=== PATIENT | female | born 1965 | race Two or more races ===

== ENCOUNTER 2016-11-14 18:35 | Inpatient (IN) | payer BC, OTHER ==
[~2016-11-14] VITALS: Ht 162.6 cm; Wt 119.3 kg
[2016-11-14] MEDS ORDERED: DEXAMETHASONE 4 MG TAB PO ONE (20:00)
[2016-11-14] MEDS ORDERED: SODIUM CHLORIDE 0.9% 1,000 ML IV ONE (20:00)
[2016-11-14] MEDS ORDERED: LEVOFLOXACIN 750MG 150 ML IV ONE (20:00)
[2016-11-14] MEDS ORDERED: ALBUTEROL SULF 2.5 MG/0.5ML(0.5%) NEB SOLN NEB ONE (20:00)
[2016-11-14 20:09] LABS: Basophils # (auto) 0.3 uL; Basophils % (auto) 2.2 % (0.0-2.0); Eosinophils # (auto) 0 uL; Hematocrit 36.7 % (36.0-46.0); Hemoglobin 11.4 g/dL (12.2-16.2); Lymphocytes # (auto) 0.9 uL; Lymphocytes % (auto) 5.8 % (10.0-50.0); Mean Corpuscular Hemoglobin 28.9 pg (28.0-32.0); Mean Corpuscular Volume 93.2 fL (80.0-100.0); Mean Platelet Volume 8.2 fL (7.4-10.4); Monocytes % (auto) 6.8 % (0.0-12.0); Neutrophils # (auto) 12.8 uL; Neutrophils % (auto) 85.2 % (37.0-80.0); Platelet Count (auto) 315 10^3/uL (140-450); Red Cell Distribution Width 15.6 % (11.6-16.0); SUSPECT VIEW TRANSMISSION
[2016-11-14 20:49] LABS: Albumin 3.5 g/dL (3.4-5.0); BUN/Creatinine Ratio 11.9; Calcium 7.6 mg/dL (8.5-10.1); Potassium 5.5 mmol/L (3.5-5.1)
[2016-11-14 20:52] LABS: Bilirubin, Total 0.4 mg/dL (0.2-1.0); Total Protein 7.3 g/dL (6.4-8.2)
[2016-11-14] MEDS ORDERED: PROG1CRE TOP (22:03)
[2016-11-14] MEDS ORDERED: TRAZ150T79 PO (22:03)
[2016-11-14] MEDS ORDERED: MONT10TA34 PO (22:03)
[2016-11-14] MEDS ORDERED: LEVO50TA7 PO (22:03)
[2016-11-14] MEDS ORDERED: LIOT25TA PO (22:03)
[2016-11-14] MEDS ORDERED: ESCI20TA PO (22:03)
[2016-11-14] MEDS ORDERED: PROMETHAZINE W/CODEINE 5 ML ORAL SYRUP PO PRN (23:15)
[2016-11-14] MEDS ORDERED: CYCLOBENZAPRINE HCL 10 MG TAB PO PRN (23:15)
[2016-11-14 23:38] VITALS: BP 127/80
[2016-11-15] VITALS (7 sets, daily range): BP systolic 87–147; BP diastolic 55–96
[2016-11-15] MEDS: PIPERACILLIN-TAZOB 3.375GM 100 ML IV SCH ×4 (00:25→13:19)
[2016-11-15] MEDS: SODIUM CHLORIDE 0.9% 1,000 ML IV SCH ×2 (00:26→12:30)
[2016-11-15] MEDS: IPRATROPIUM BROM 0.5 MG/2.5ML INH SOL NEB SCH ×5 (02:57→20:20)
[2016-11-15] MEDS: ALBUTEROL SULF 2.5 MG/0.5ML(0.5%) NEB SOLN NEB SCH ×5 (02:57→20:20)
[2016-11-15 06:43] LABS: Basophils # (auto) 0 uL; Eosinophils # (auto) 0 uL; Hematocrit 31.6 % (36.0-46.0); Lymphocytes # (auto) 0.7 uL; Lymphocytes % (auto) 6.5 % (10.0-50.0); Mean Corpuscular Hgb Conc. 31.7 g/dL (32.0-36.0); Mean Corpuscular Volume 91.5 fL (80.0-100.0); Mean Platelet Volume 8.6 fL (7.4-10.4); Monocytes # (auto) 0.5 uL; Monocytes % (auto) 4.4 % (0.0-12.0); Neutrophils # (auto) 9.8 uL; Neutrophils % (auto) 89.1 % (37.0-80.0); Platelet Count (auto) 233 10^3/uL (140-450); Red Cell Distribution Width 15.3 % (11.6-16.0); White Blood Cell 10.9 10^3/uL (4.4-10.8)
[2016-11-15 07:06] LABS: Albumin 3.2 g/dL (3.4-5.0); Potassium 4.4 mmol/L (3.5-5.1)
[2016-11-15 07:13] LABS: BUN/Creatinine Ratio 12.8; Bilirubin, Total 0.6 mg/dL (0.2-1.0); Calcium 7.8 mg/dL (8.5-10.1); Total Protein 6.7 g/dL (6.4-8.2)
[2016-11-15] MEDS ORDERED: LEXAPRO 20 MG PO SCH (10:00)
[2016-11-15] MEDS ORDERED: methylPREDNISolone SOD SUCC 40 MG/ML VL IM SCH (10:00)
[2016-11-15] MEDS ORDERED: ENOXAPARIN SOD 30 MG/0.3 ML SYRINGE SC SCH (10:00)
[2016-11-15] MEDS: ASPirin 81 mg TAB PO SCH (10:00)
[2016-11-15] MEDS: ENOXAPARIN SOD 40 MG/0.4 ML SYRINGE SC SCH (11:33)
[2016-11-15] MEDS: MONTELUKAST SODIUM 10 MG TAB PO SCH (11:33)
[2016-11-15] MEDS: PANTOPRAZOLE SODIUM 40 MG/10 ML VIAL IV SCH (11:34)
[2016-11-15 12:41] LABS: B-Type Natriuretic Peptide 386.32 pg/mL (0-100)
[2016-11-15 12:42] LABS: Temperature: 23.4 C (20.0-25.0)
[2016-11-15] MEDS ORDERED: FUROSEMIDE 100 MG/10ML VIAL IV ONE (14:30)
[2016-11-15] MEDS ORDERED: POTASSIUM CHL 10% (20 MEQ/15ML) ORAL SOLN PO ONE (14:30)
[2016-11-15] MEDS: LEVOFLOXACIN 500 MG TAB PO SCH (14:43)
[2016-11-15] MEDS: DIAZEPAM 5 MG TAB PO PRN (17:43)
[2016-11-15] MEDS: guaiFENesin 200 MG/10 ML UD PO SCH ×2 (18:05→23:38)
[2016-11-15] MEDS ORDERED: LEVOTHYROXINE SODIUM 50 MCG TAB PO ONE (18:15)
[2016-11-15] MEDS ORDERED: LEVOFLOXACIN 500MG 100 ML IV SCH (22:00)
[2016-11-15] MEDS ORDERED: LEVOTHYROXINE SODIUM 50 MCG TAB PO SCH (22:00)
[2016-11-15] MEDS: LEXAPRO 20 MG PO SCH (22:00)
[2016-11-15] MEDS: LEVOTHYROXINE 50 MCG TABLET PO SCH (22:00)
[2016-11-15] MEDS: traZODone HCL 50 MG TAB PO SCH (22:56)
[2016-11-16 04:50] VITALS: BP 111/55
[2016-11-16] MEDS: ALBUTEROL SULF 2.5 MG/0.5ML(0.5%) NEB SOLN NEB SCH ×4 (05:50→20:15)
[2016-11-16] MEDS: IPRATROPIUM BROM 0.5 MG/2.5ML INH SOL NEB SCH ×4 (05:50→20:15)
[2016-11-16] MEDS: guaiFENesin 200 MG/10 ML UD PO SCH ×4 (06:00→18:00)
[2016-11-16] MEDS ORDERED: LEVOTHYROXINE SODIUM 50 MCG TAB PO SCH (07:00)
[2016-11-16 08:40] VITALS: BP 117/59
[2016-11-16] MEDS: PANTOPRAZOLE SODIUM 40 MG/10 ML VIAL IV SCH (09:02)
[2016-11-16] MEDS: predniSONE 20 MG TAB PO SCH (09:03)
[2016-11-16] MEDS: ASPirin 81 mg TAB PO SCH (09:03)
[2016-11-16] MEDS: ENOXAPARIN SOD 40 MG/0.4 ML SYRINGE SC SCH (09:03)
[2016-11-16] MEDS: LEVOFLOXACIN 500 MG TAB PO SCH (09:03)
[2016-11-16] MEDS ORDERED: VANCOMYCIN PER PHARMACY 0 MG IV SCH (11:30)
[2016-11-16] MEDS ORDERED: VANCOMYCIN 1GM/250ML D5W 250 ML IV ONE (11:45)
[2016-11-16] MEDS: MONTELUKAST SODIUM 10 MG TAB PO SCH (12:18)
[2016-11-16 12:37] VITALS: BP 94/42
[2016-11-16 16:33] VITALS: BP 98/46
[2016-11-16] MEDS: VANCOMYCIN 1GM/250ML D5W 250 ML IV SCH (20:19)
[2016-11-16 21:40] VITALS: BP 109/60
[2016-11-16] MEDS: LEVOTHYROXINE 50 MCG TABLET PO SCH (22:00)
[2016-11-16] MEDS: LEXAPRO 20 MG PO SCH (22:00)
[2016-11-16] MEDS ORDERED: traZODone HCL 50 MG TAB ONE ×2 (22:57→22:58)
[2016-11-16] MEDS: traZODone HCL 50 MG TAB PO SCH (23:25)
[2016-11-16] MEDS: DIAZEPAM 5 MG TAB PO PRN (23:25)
[2016-11-17] MEDS: VANCOMYCIN 1GM/250ML D5W 250 ML IV SCH ×3 (04:21→22:38)
[2016-11-17 05:18] VITALS: BP 120/69
[2016-11-17] MEDS: IPRATROPIUM BROM 0.5 MG/2.5ML INH SOL NEB SCH ×4 (06:19→18:00)
[2016-11-17] MEDS: ALBUTEROL SULF 2.5 MG/0.5ML(0.5%) NEB SOLN NEB SCH ×4 (06:19→18:00)
[2016-11-17] MEDS: guaiFENesin 200 MG/10 ML UD PO SCH ×4 (06:42→18:58)
[2016-11-17 07:24] LABS: Basophils # (auto) 0 uL; Basophils % (auto) 0.2 % (0.0-2.0); Eosinophils # (auto) 0 uL; Hematocrit 35.9 % (36.0-46.0); Hemoglobin 11.2 g/dL (12.2-16.2); Lymphocytes # (auto) 2.6 uL; Lymphocytes % (auto) 16.3 % (10.0-50.0); Mean Corpuscular Hemoglobin 28.5 pg (28.0-32.0); Mean Corpuscular Hgb Conc. 31.1 g/dL (32.0-36.0); Mean Corpuscular Volume 91.6 fL (80.0-100.0); Mean Platelet Volume 8.6 fL (7.4-10.4); Monocytes % (auto) 6.3 % (0.0-12.0); Neutrophils # (auto) 12.2 uL; Neutrophils % (auto) 77.2 % (37.0-80.0); Platelet Count (auto) 293 10^3/uL (140-450); Red Cell Distribution Width 15.9 % (11.6-16.0); White Blood Cell 15.8 10^3/uL (4.4-10.8)
[2016-11-17 07:51] LABS: Potassium 3.8 mmol/L (3.5-5.1)
[2016-11-17 07:55] LABS: Albumin 2.9 g/dL (3.4-5.0); BUN/Creatinine Ratio 27.8; Calcium 8.1 mg/dL (8.5-10.1)
[2016-11-17 07:58] LABS: Bilirubin, Total 0.3 mg/dL (0.2-1.0); Total Protein 6.3 g/dL (6.4-8.2)
[2016-11-17 08:43] VITALS: BP 118/57
[2016-11-17] MEDS: ASPirin 81 mg TAB PO SCH (09:17)
[2016-11-17] MEDS: predniSONE 20 MG TAB PO SCH (09:17)
[2016-11-17] MEDS: PANTOPRAZOLE SODIUM 40 MG/10 ML VIAL IV SCH (09:17)
[2016-11-17] MEDS: MONTELUKAST SODIUM 10 MG TAB PO SCH (09:17)
[2016-11-17] MEDS: ENOXAPARIN SOD 40 MG/0.4 ML SYRINGE SC SCH (09:17)
[2016-11-17] MEDS: LEVOFLOXACIN 500 MG TAB PO SCH (09:17)
[2016-11-17 12:46] VITALS: BP 99/57
[2016-11-17 16:57] VITALS: BP 101/61
[2016-11-17 22:00] VITALS: BP 108/54
[2016-11-17] MEDS: LEVOTHYROXINE 50 MCG TABLET PO SCH (22:00)
[2016-11-17] MEDS: LEXAPRO 20 MG PO SCH (22:00)
[2016-11-17] MEDS: traZODone HCL 50 MG TAB PO SCH (22:39)
[2016-11-18] MEDS: guaiFENesin 200 MG/10 ML UD PO SCH ×5 (00:41→23:13)
[2016-11-18 05:08] VITALS: BP 108/64
[2016-11-18 06:23] LABS: Basophils # (auto) 0 uL; Basophils % (auto) 0.2 % (0.0-2.0); Eosinophils # (auto) 0.1 uL; Eosinophils % (auto) 0.7 % (0.0-7.0); Hematocrit 39.3 % (36.0-46.0); Hemoglobin 12.3 g/dL (12.2-16.2); Lymphocytes # (auto) 2.9 uL; Lymphocytes % (auto) 25.2 % (10.0-50.0); Mean Corpuscular Hemoglobin 28.6 pg (28.0-32.0); Mean Corpuscular Hgb Conc. 31.2 g/dL (32.0-36.0); Mean Corpuscular Volume 91.6 fL (80.0-100.0); Mean Platelet Volume 8.5 fL (7.4-10.4); Monocytes # (auto) 0.9 uL; Monocytes % (auto) 8.1 % (0.0-12.0); Neutrophils # (auto) 7.5 uL; Neutrophils % (auto) 65.8 % (37.0-80.0); Platelet Count (auto) 326 10^3/uL (140-450); Red Cell Distribution Width 15.7 % (11.6-16.0); White Blood Cell 11.4 10^3/uL (4.4-10.8)
[2016-11-18] MEDS: IPRATROPIUM BROM 0.5 MG/2.5ML INH SOL NEB SCH ×4 (06:36→18:00)
[2016-11-18] MEDS: ALBUTEROL SULF 2.5 MG/0.5ML(0.5%) NEB SOLN NEB SCH ×4 (06:36→18:00)
[2016-11-18 06:57] LABS: Albumin 2.9 g/dL (3.4-5.0); BUN/Creatinine Ratio 30.6; Bilirubin, Total 0.3 mg/dL (0.2-1.0); Calcium 8.3 mg/dL (8.5-10.1); Potassium 4.2 mmol/L (3.5-5.1); Total Protein 6.3 g/dL (6.4-8.2)
[2016-11-18 07:30] VITALS: BP 100/45
[2016-11-18] MEDS: VANCOMYCIN 1GM/250ML D5W 250 ML IV SCH ×2 (08:11→16:00)
[2016-11-18] MEDS ORDERED: ADENOSINE 89 MG in GIVE UN-DILUTED 0 ML IV STA (08:26)
[2016-11-18] MEDS: PANTOPRAZOLE SODIUM 40 MG/10 ML VIAL IV SCH (10:00)
[2016-11-18] MEDS: ENOXAPARIN SOD 40 MG/0.4 ML SYRINGE SC SCH (11:53)
[2016-11-18] MEDS: predniSONE 20 MG TAB PO SCH (11:53)
[2016-11-18] MEDS: ASPirin 81 mg TAB PO SCH (11:54)
[2016-11-18 11:55] VITALS: BP 126/73
[2016-11-18] MEDS: LEVOFLOXACIN 500 MG TAB PO SCH (11:55)
[2016-11-18] MEDS: MONTELUKAST SODIUM 10 MG TAB PO SCH (11:55)
[2016-11-18 15:36] VITALS: BP 126/73
[2016-11-18 16:41] VITALS: BP 108/63
[2016-11-18] MEDS: LEXAPRO 20 MG PO SCH (20:43)
[2016-11-18] MEDS: LEVOTHYROXINE 50 MCG TABLET PO SCH (20:44)
[2016-11-18] MEDS: traZODone HCL 50 MG TAB PO SCH (20:44)
[2016-11-18 21:30] VITALS: BP 102/49
[2016-11-18] MEDS: DIAZEPAM 5 MG TAB PO PRN (22:27)
[2016-11-19] VITALS (7 sets, daily range): BP systolic 92–121; BP diastolic 49–78
[2016-11-19] MEDS: guaiFENesin 200 MG/10 ML UD PO SCH ×4 (06:15→23:13)
[2016-11-19 06:24] LABS: Basophils # (auto) 0 uL; Basophils % (auto) 0.2 % (0.0-2.0); Eosinophils # (auto) 0 uL; Eosinophils % (auto) 0.4 % (0.0-7.0); Hemoglobin 12.4 g/dL (12.2-16.2); Lymphocytes # (auto) 2.3 uL; Lymphocytes % (auto) 23.9 % (10.0-50.0); Mean Corpuscular Hemoglobin 28.5 pg (28.0-32.0); Mean Platelet Volume 8.3 fL (7.4-10.4); Monocytes # (auto) 0.9 uL; Neutrophils # (auto) 6.5 uL; Neutrophils % (auto) 66.5 % (37.0-80.0); Platelet Count (auto) 340 10^3/uL (140-450); Red Cell Distribution Width 15.9 % (11.6-16.0); White Blood Cell 9.7 10^3/uL (4.4-10.8)
[2016-11-19 06:55] LABS: BUN/Creatinine Ratio 27.7; Calcium 8.6 mg/dL (8.5-10.1); Potassium 3.7 mmol/L (3.5-5.1)
[2016-11-19] MEDS: ALBUTEROL SULF 2.5 MG/0.5ML(0.5%) NEB SOLN NEB SCH ×4 (06:57→19:41)
[2016-11-19] MEDS: IPRATROPIUM BROM 0.5 MG/2.5ML INH SOL NEB SCH ×4 (06:57→19:41)
[2016-11-19] MEDS: MONTELUKAST SODIUM 10 MG TAB PO SCH (10:49)
[2016-11-19] MEDS: LEVOFLOXACIN 500 MG TAB PO SCH (10:49)
[2016-11-19] MEDS: ASPirin 81 mg TAB PO SCH (10:50)
[2016-11-19] MEDS: PANTOPRAZOLE SODIUM 40 MG/10 ML VIAL IV SCH (10:50)
[2016-11-19] MEDS: predniSONE 20 MG TAB PO SCH (10:50)
[2016-11-19] MEDS: ENOXAPARIN SOD 40 MG/0.4 ML SYRINGE SC SCH (10:50)
[2016-11-19] MEDS: DIAZEPAM 5 MG TAB PO PRN (17:11)
[2016-11-19] MEDS: LEXAPRO 20 MG PO SCH (22:00)
[2016-11-19] MEDS: LEVOTHYROXINE 50 MCG TABLET PO SCH (22:00)
[2016-11-19] MEDS: traZODone HCL 50 MG TAB PO SCH (23:13)
[2016-11-20 05:00] VITALS: BP 100/55
[2016-11-20] MEDS: guaiFENesin 200 MG/10 ML UD PO SCH ×3 (05:56→18:00)
[2016-11-20] MEDS: ALBUTEROL SULF 2.5 MG/0.5ML(0.5%) NEB SOLN NEB SCH ×3 (06:36→13:43)
[2016-11-20] MEDS: IPRATROPIUM BROM 0.5 MG/2.5ML INH SOL NEB SCH ×3 (06:36→13:43)
[2016-11-20 07:55] LABS: INR 0.92 (0.9-1.15); Prothrombin Time 9.5 sec (9.37-12.3)
[2016-11-20 07:56] LABS: Partial Thromboplastin Time 24.3 sec (22.64-33.71)
[2016-11-20] MEDS ORDERED: fentaNYL CITRATE 100 MCG/2 ML VL IV ONE (09:00)
[2016-11-20] MEDS ORDERED: LORazepam 2MG/ML-1ML VIAL IV ONE (09:00)
[2016-11-20 09:18] VITALS: BP 86/41
[2016-11-20] MEDS ORDERED: LIDOCAINE VISCOUS 2% 15ML UD ONE (09:18)
[2016-11-20] MEDS ORDERED: diphenhdrAMINE HCL 50 MG/1 ML VL ONE (09:57)
[2016-11-20] MEDS: ASPirin 81 mg TAB PO SCH (10:00)
[2016-11-20 12:50] VITALS: BP 86/59
[2016-11-20] MEDS: ENOXAPARIN SOD 40 MG/0.4 ML SYRINGE SC SCH (16:20)
[2016-11-20] MEDS: predniSONE 20 MG TAB PO SCH (16:20)
[2016-11-20] MEDS: LEVOFLOXACIN 500 MG TAB PO SCH (16:20)
[2016-11-20] MEDS: PANTOPRAZOLE SODIUM 40 MG/10 ML VIAL IV SCH (16:20)
[2016-11-20] MEDS: MONTELUKAST SODIUM 10 MG TAB PO SCH (16:21)
[2016-11-20 16:33] VITALS: BP 93/55
[2016-11-20 19:44] VITALS: BP 93/55
== END 2016-11-20 20:10 | disposition home or self-care (01) | DRG 871 ==
LOC: ER 18:39 → OVERFLOW 19:40 → EAST 23:38
PROVIDERS: ADMIT Family Medicine; ATTEND Internal Medicine Pulmonary Disease
PROC: B24BZZ4 Ultrasonography of Heart with Aorta, Transesophageal (ICD-10-PCS; principal; 2016-11-20)
DX: A41.9 Sepsis, unspecified organism (principal); N17.0 Acute kidney failure with tubular necrosis; J96.90 Respiratory failure, unspecified, unspecified whether with hypoxia or hypercapnia; M62.82 Rhabdomyolysis; J45.901 Unspecified asthma with (acute) exacerbation; J44.0 Chronic obstructive pulmonary disease with (acute) lower respiratory infection; J44.1 Chronic obstructive pulmonary disease with (acute) exacerbation; Z68.42 Body mass index [BMI] 45.0-49.9, adult; J20.9 Acute bronchitis, unspecified; E87.5 Hyperkalemia; F32.9 Major depressive disorder, single episode, unspecified; N18.3 Chronic kidney disease, stage 3 (moderate); D64.9 Anemia, unspecified; E03.9 Hypothyroidism, unspecified; F17.210 Nicotine dependence, cigarettes, uncomplicated; M79.7 Fibromyalgia; B95.7 Other staphylococcus as the cause of diseases classified elsewhere; G62.9 Polyneuropathy, unspecified; E66.01 Morbid (severe) obesity due to excess calories; I50.9 Heart failure, unspecified; J04.0 Acute laryngitis; E87.6 Hypokalemia; J42 Unspecified chronic bronchitis; Z91.041 Radiographic dye allergy status
CPT/HCPCS: 36415; 71010; 78452; 80048; 80053; 80202; 83880; 84484; 85025; 85610; 85652; 85730; 87040; 87070; 87077; 87186; 87205; 87400; 93005; 93017; 93306; 93312; 93970; 94640; 94761; 96365; C9113; J0153; J1956; J2543

== ENCOUNTER 2016-11-27 17:59 | Inpatient (IN) | payer BC ==
[~2016-11-27] VITALS: Ht 152.4 cm; Wt 113.0 kg
[~2016-11-27 17:59] MED LIST: CALCIUM CHLOR(10%) 100MG/ML 10ML SYRINGE IV ONE; DEXTROSE (50%) 50ML SYRG IV ONE; EPINEPHrine HCL 1 MG/10 ML SYRG IV ONE; ESCI20TA PO; LEVO50TA7 PO; LIOT25TA PO; MONT10TA34 PO; PROG1CRE TOP; SODIUM BICARBONATE 8.4% INJ 50ML SYRINGE IV ONE; TRAZ150T79 PO
[2016-11-27] MEDS ORDERED: NOREPINEPHRINE BITARTRATE 250 ML IV ONE (18:02)
[2016-11-27] MEDS ORDERED: SODIUM CHLORIDE 0.9% 1,000 ML IVB ONE (18:50)
[2016-11-27 19:24] LABS: DEFINITIVE VIEW TRANSMISSION; Hematocrit 33.5 % (36.0-46.0); Hemoglobin 10.1 g/dL (12.2-16.2); Mean Corpuscular Hgb Conc. 30.2 g/dL (32.0-36.0); Mean Corpuscular Volume 96.1 fL (80.0-100.0); Mean Platelet Volume 8.5 fL (7.4-10.4); Platelet Count (auto) 256 10^3/uL (140-450); SUSPECT VIEW TRANSMISSION; White Blood Cell 25.1 10^3/uL (4.4-10.8)
[2016-11-27 19:28] LABS: Myelocytes % 0; Promyelocytes % 0; Reactive Lymphocytes 0
[2016-11-27 19:32] LABS: Albumin 2.3 g/dL (3.4-5.0); Calcium 9.5 mg/dL (8.5-10.1)
[2016-11-27 19:34] LABS: BUN/Creatinine Ratio 11.6
[2016-11-27 19:50] LABS: Lactic Acid 15.4 mmol/L (0.4-2.0)
[2016-11-27 19:55] LABS: Partial Thromboplastin Time 31.1 sec (22.64-33.71)
[2016-11-27 19:57] LABS: Bilirubin, Total 0.4 mg/dL (0.2-1.0); Total Protein 5.4 g/dL (6.4-8.2)
[2016-11-27] MEDS ORDERED: SODIUM BICARBONATE 8.4 % INJ 50ML VIAL IV ONE (20:00)
[2016-11-27] MEDS ORDERED: cefTRIAXone 1GM/50ML D5W 50 ML IV ONE (20:00)
[2016-11-27 20:01] LABS: Metamyelocytes % 2
[2016-11-27 20:02] LABS: Platelet Estimate Adequate
[2016-11-27 20:03] LABS: INR 1.37 (0.9-1.15); Prothrombin Time 14.1 sec (9.37-12.3)
[2016-11-27 20:13] LABS: Magnesium 3.6 mg/dL (1.6-2.6)
[2016-11-27 20:31] LABS: REFLEX LACTIC ACID YES OR NO YES
[2016-11-27 20:40] LABS: Potassium 6.2 mmol/L (3.5-5.1)
[2016-11-27] MEDS ORDERED: LACTULOSE 20Gm/30ML SOLN PO PRN (20:45)
[2016-11-27] MEDS ORDERED: NITROGLYCERIN 0.4 MG SL TAB SL PRN (20:45)
[2016-11-27] MEDS ORDERED: VANCOMYCIN 1GM/250ML D5W 250 ML IV ONE (20:45)
[2016-11-27] MEDS ORDERED: SODIUM POLYSTYRENE SULF 15GM/60ML SUSP NG ONE (20:45)
[2016-11-27] MEDS ORDERED: SODIUM BICARBONATE 8.4% INJ 50ML SYRINGE IV ONE (20:45)
[2016-11-27] MEDS ORDERED: DEXTROSE (50%) 50ML SYRG IV ONE (20:45)
[2016-11-27] MEDS ORDERED: InsuLIN REG 1unit/0.01ml Soln (100units/ml) IV ONE (20:45)
[2016-11-27] MEDS ORDERED: VANCOMYCIN PER PHARMACY 0 MG IV SCH (20:45)
[2016-11-27] MEDS ORDERED: MORPHINE SULF INJ 2 MG/ML SYRINGE 1ML IV PRN (20:45)
[2016-11-27] MEDS ORDERED: CALCIUM GLUC 4.65 MEQ/10ML 4.65 MEQ in SODIUM CHL 0.9% 50 ML IV ONE (20:45)
[2016-11-27] MEDS ORDERED: CALCIUM GLUC 4.65 MEQ/10ML IV ONE (20:53)
[2016-11-27] MEDS ORDERED: ENOXAPARIN SOD 30 MG/0.3 ML SYRINGE SC SCH (20:54)
[2016-11-27] MEDS ORDERED: PANTOPRAZOLE SODIUM 40 MG/10 ML VIAL IV ONE (21:00)
[2016-11-27] MEDS: SODIUM CHLORIDE 0.9% 1,000 ML IV SCH (21:15)
[2016-11-27 21:47] LABS: Albumin 2.6 g/dL (3.4-5.0); Calcium 7.6 mg/dL (8.5-10.1)
[2016-11-27 21:49] LABS: Lactic Acid 12.5 mmol/L (0.4-2.0)
[2016-11-27] MEDS: ALBUTEROL SULF 2.5 MG/0.5ML(0.5%) NEB SOLN NEB SCH (22:00)
[2016-11-27] MEDS ORDERED: methylPREDNISolone SOD SUCC 125 MG/2 ML VL IV SCH (22:00)
[2016-11-27] MEDS: IPRATROPIUM BROM 0.5 MG/2.5ML INH SOL NEB SCH (22:00)
[2016-11-27 22:04] LABS: Bilirubin, Total 0.9 mg/dL (0.2-1.0); Total Protein 5.7 g/dL (6.4-8.2)
[2016-11-27 22:07] LABS: Acetaminophen 8.5 ug/mL (10-30); Salicylate 4.7 mg/dL (2.8-20.0)
[2016-11-27 22:15] LABS: REFLEX LACTIC ACID YES OR NO YES
[2016-11-27 22:37] LABS: Potassium 7.4 mmol/L (3.5-5.1)
[2016-11-27 22:43] VITALS: BP 129/72
[2016-11-27] MEDS ORDERED: ENOXAPARIN SOD 60 MG/0.6 ML SYRINGE SC ONE (22:45)
[2016-11-27 23:25] VITALS: BP 114/46
[2016-11-28] VITALS (105 sets, daily range): BP systolic 77–168; BP diastolic 32–88
[2016-11-28] MEDS: PIPERACILLIN-TAZOB 3.375GM 100 ML IV SCH ×2 (00:19→05:35)
[2016-11-28 00:21] LABS: Urine RBC None Seen /hpf (0 - 4)
[2016-11-28 00:47] LABS: Urine Bilirubin Negative (Negative); Urine Color Yellow (Yellow); Urine Hyaline Cast MANY /lpf (0 - 2); Urine Mucus FEW (None Seen); Urine Nitrite Negative (Negative); Urine Squamous Epithelial Cell MOD /hpf (<5); Urine Urobilinogen Normal (Negative); Urine pH 5.5 (5.0-8.0)
[2016-11-28 00:48] LABS: Urine Blood 2+ /uL (Negative); Urine Glucose 1+ mg/dL (Normal); Urine Ketone 1+ (Negative)
[2016-11-28] MEDS: NOREPINEPHRINE BITARTRATE 250 ML IV SCH ×2 (02:00→10:34)
[2016-11-28] MEDS: IPRATROPIUM BROM 0.5 MG/2.5ML INH SOL NEB SCH ×6 (02:11→22:46)
[2016-11-28] MEDS: ALBUTEROL SULF 2.5 MG/0.5ML(0.5%) NEB SOLN NEB SCH ×6 (02:11→22:46)
[2016-11-28] MEDS ORDERED: NOREPINEPHRINE BITARTRATE 250 ML IV ONE (02:20)
[2016-11-28 04:22] LABS: DEFINITIVE VIEW TRANSMISSION; Hematocrit 37.9 % (36.0-46.0); Hemoglobin 11.7 g/dL (12.2-16.2); Mean Corpuscular Hemoglobin 28.6 pg (28.0-32.0); Mean Corpuscular Hgb Conc. 30.8 g/dL (32.0-36.0); Mean Corpuscular Volume 92.8 fL (80.0-100.0); Mean Platelet Volume 8.6 fL (7.4-10.4); Platelet Count (auto) 296 10^3/uL (140-450); Red Cell Distribution Width 15.4 % (11.6-16.0); SUSPECT VIEW TRANSMISSION
[2016-11-28 04:48] LABS: Metamyelocytes % 0; Promyelocytes % 0; Reactive Lymphocytes 0; White Blood Cell 35.5 10^3/uL (4.4-10.8)
[2016-11-28 05:29] LABS: Hypersegmented Neutrophils Present; Myelocytes % 1; Platelet Estimate Adequate
[2016-11-28 05:30] LABS: RBC Morphology Normal
[2016-11-28 07:48] LABS: Albumin 3.1 g/dL (3.4-5.0); BUN/Creatinine Ratio 13.2; Calcium 8.2 mg/dL (8.5-10.1); Potassium 4.2 mmol/L (3.5-5.1)
[2016-11-28 08:07] LABS: Bilirubin, Total 1.6 mg/dL (0.2-1.0); Total Protein 6.6 g/dL (6.4-8.2)
[2016-11-28] MEDS ORDERED: cefTRIAXone 1GM/50ML D5W 50 ML IV SCH (09:00)
[2016-11-28] MEDS ORDERED: PANTOPRAZOLE SODIUM 40 MG/10 ML VIAL IV SCH (10:00)
[2016-11-28] MEDS ORDERED: ENOXAPARIN SOD 100 MG/1 ML SYRINGE SC SCH ×2 (10:00→21:00)
[2016-11-28] MEDS: SODIUM CHLORIDE 0.9% 1,000 ML IV SCH ×2 (10:12→22:18)
[2016-11-28] MEDS: LINEZOLID 600MG/300ML 300 ML IV SCH ×2 (10:48→22:18)
[2016-11-28] MEDS ORDERED: methylPREDNISolone SOD SUCC 125 MG/2 ML VL IV SCH (11:30)
[2016-11-28 12:56] LABS: Lactic Acid 18.4 mmol/L (0.4-2.0)
[2016-11-28 12:57] LABS: REFLEX LACTIC ACID YES OR NO YES
[2016-11-28] MEDS: PIPERACILLIN-TAZOB 2.25GM 50 ML IV SCH ×2 (13:31→18:00)
[2016-11-28] MEDS: fentaNYL Drip 2500mCg/250mlNS 250 ML IV SCH (13:43)
[2016-11-28 16:38] LABS: Lactic Acid 12.1 mmol/L (0.4-2.0)
[2016-11-28 17:31] LABS: REFLEX LACTIC ACID YES OR NO YES
[2016-11-28] MEDS: PANTOPRAZOLE SODIUM 40 MG/10 ML VIAL IV SCH (22:17)
[2016-11-28] MEDS: methylPREDNISolone SOD SUCC 125 MG/2 ML VL IV SCH (22:18)
[2016-11-29] VITALS (77 sets, daily range): BP systolic 84–115; BP diastolic 34–80
[2016-11-29] MEDS: PIPERACILLIN-TAZOB 2.25GM 50 ML IV SCH ×2 (00:30→06:00)
[2016-11-29] MEDS: ALBUTEROL SULF 2.5 MG/0.5ML(0.5%) NEB SOLN NEB SCH ×4 (02:48→15:28)
[2016-11-29] MEDS: IPRATROPIUM BROM 0.5 MG/2.5ML INH SOL NEB SCH ×4 (02:48→15:28)
[2016-11-29 03:49] LABS: DEFINITIVE VIEW TRANSMISSION; Hematocrit 34.2 % (36.0-46.0); Hemoglobin 10.7 g/dL (12.2-16.2); Mean Corpuscular Hemoglobin 28.5 pg (28.0-32.0); Mean Corpuscular Hgb Conc. 31.3 g/dL (32.0-36.0); Mean Corpuscular Volume 91.3 fL (80.0-100.0); Mean Platelet Volume 9.2 fL (7.4-10.4); Platelet Count (auto) 223 10^3/uL (140-450); Red Cell Distribution Width 15.9 % (11.6-16.0); SUSPECT VIEW TRANSMISSION
[2016-11-29 04:07] LABS: Cholesterol 102 mg/dL (<200); HDL Cholesterol 46 mg/dL (40-59); LDL Cholesterol 43 mg/dL (<100); Triglycerides 137 mg/dL (<150)
[2016-11-29 04:09] LABS: Albumin 2.3 g/dL (3.4-5.0); BUN/Creatinine Ratio 13.8; Calcium 6.6 mg/dL (8.5-10.1); Potassium 4.5 mmol/L (3.5-5.1)
[2016-11-29 04:18] LABS: Lactic Acid 8.2 mmol/L (0.4-2.0)
[2016-11-29 04:34] LABS: Bilirubin, Total 1.7 mg/dL (0.2-1.0); Total Protein 5.3 g/dL (6.4-8.2)
[2016-11-29 04:35] LABS: B-Type Natriuretic Peptide 676.64 pg/mL (0-100); Temperature: 22.4 C (20.0-25.0)
[2016-11-29 04:35] LABS: INR 1.69 (0.9-1.15); Prothrombin Time 17.4 sec (9.37-12.3)
[2016-11-29 04:41] LABS: REFLEX LACTIC ACID YES OR NO YES
[2016-11-29 04:54] LABS: Magnesium 5.6 mg/dL (1.6-2.6)
[2016-11-29 04:55] LABS: White Blood Cell 38.1 10^3/uL (4.4-10.8)
[2016-11-29 04:56] LABS: Myelocytes % 0; Promyelocytes % 0; Reactive Lymphocytes 0
[2016-11-29 06:05] LABS: Anisocytosis Slight; Hypersegmented Neutrophils Present; Metamyelocytes % 3; Platelet Estimate Adequate
[2016-11-29] MEDS: NOREPINEPHRINE BITARTRATE 250 ML IV SCH (06:15)
[2016-11-29] MEDS: LINEZOLID 600MG/300ML 300 ML IV SCH (09:54)
[2016-11-29] MEDS: PANTOPRAZOLE SODIUM 40 MG/10 ML VIAL IV SCH (09:54)
[2016-11-29] MEDS: methylPREDNISolone SOD SUCC 125 MG/2 ML VL IV SCH (09:54)
[2016-11-29] MEDS ORDERED: SODIUM BICARBONATE 8.4 % INJ 50ML VIAL IV ONE (10:00)
[2016-11-29] MEDS ORDERED: LEVOFLOXACIN 250MG 50 ML IV SCH (12:00)
[2016-11-29] MEDS ORDERED: PIPERACILLIN-TAZOB 2.25GM 50 ML IV SCH (13:00)
[2016-11-29] MEDS: fentaNYL Drip 2500mCg/250mlNS 250 ML IV SCH (13:23)
[2016-11-29] MEDS ORDERED: LORazepam 2MG/ML-1ML VIAL IV PRN (17:30)
[2016-11-29] MEDS ORDERED: MORPHINE SULF INJ 2 MG/ML SYRINGE 1ML IV ONE (18:00)
== END 2016-11-29 21:30 | disposition expired | DRG 871 ==
LOC: EDUNIT# 17:59 → ER 18:04 → TELE 18:05 → ICU WEST 23:05
PROVIDERS: ADMIT Family Medicine; ATTEND Internal Medicine
PROC: 5A1945Z Respiratory Ventilation, 24-96 Consecutive Hours (ICD-10-PCS; principal; 2016-11-28)
PROC: 0BH17EZ Insertion of Endotracheal Airway into Trachea, Via Natural or Artificial Opening (ICD-10-PCS; 2016-11-28)
PROC: 5A12012 Performance of Cardiac Output, Single, Manual (ICD-10-PCS; 2016-11-28)
DX: A41.9 Sepsis, unspecified organism (principal); R65.21 Severe sepsis with septic shock; J18.9 Pneumonia, unspecified organism; N17.0 Acute kidney failure with tubular necrosis; J96.00 Acute respiratory failure, unspecified whether with hypoxia or hypercapnia; G93.5 Compression of brain; G93.1 Anoxic brain damage, not elsewhere classified; J44.0 Chronic obstructive pulmonary disease with (acute) lower respiratory infection; J44.1 Chronic obstructive pulmonary disease with (acute) exacerbation; K56.7 Ileus, unspecified; E87.2 Acidosis; J45.901 Unspecified asthma with (acute) exacerbation; N17.9 Acute kidney failure, unspecified; Z68.42 Body mass index [BMI] 45.0-49.9, adult; Z99.11 Dependence on respirator [ventilator] status; I46.9 Cardiac arrest, cause unspecified; E16.2 Hypoglycemia, unspecified; F17.210 Nicotine dependence, cigarettes, uncomplicated; J45.909 Unspecified asthma, uncomplicated; Z88.8 Allergy status to other drugs, medicaments and biological substances; Z91.041 Radiographic dye allergy status; E03.9 Hypothyroidism, unspecified; E87.5 Hyperkalemia; G40.909 Epilepsy, unspecified, not intractable, without status epilepticus; F32.9 Major depressive disorder, single episode, unspecified; N18.9 Chronic kidney disease, unspecified; G60.9 Hereditary and idiopathic neuropathy, unspecified; G89.29 Other chronic pain; M79.7 Fibromyalgia; E66.9 Obesity, unspecified; Z90.710 Acquired absence of both cervix and uterus; Z98.890 Other specified postprocedural states; I45.10 Unspecified right bundle-branch block; Z90.49 Acquired absence of other specified parts of digestive tract
CPT/HCPCS: 31500; 36415; 36600; 51702; 70450; 71010; 74176; 76705; 80053; 80061; 80202; 80320; 80329; 81001; 82140; 82565; 82805; 82962; 83605; 83735; 83880; 84443; 84484; 85007; 85027; 85379; 85610; 85730; 87040; 87070; 87081; 87086; 87205; 92950; 93005; 93970; 94002; 94003; 94640; 95819; 96374; 99291; C9113; G0434; J0696; J1815; J2543; J3010; J3490